=== PATIENT | female | born 1945 | race Hispanic/Latino ===

== ENCOUNTER → 2019-09-25 | Outpatient (CLI) | payer OTHER | END | disposition home or self-care (01) | LOC: RAH 09:22 | PROVIDERS: ATTEND Obstetrics & Gynecology | DX: D07.0 Carcinoma in situ of endometrium (principal); K42.9 Umbilical hernia without obstruction or gangrene | CPT/HCPCS: 74176 ==

== ENCOUNTER 2024-03-04 06:52 | Observation (INO) | payer MEDICARE ==
[2024-02-28 12:50] LABS: BASOPHILS # (AUTO) 0.02 K/uL (0.00-0.20); BASOPHILS % (AUTO) 0.4 % (0.0-5.0); EOSINOPHILS # (AUTO) 0.15 K/uL (0.00-0.70); EOSINOPHILS % (AUTO) 3.2 % (0.0-8.0); HEMATOCRIT 40.6 % (36-48); IMMATURE GRANULOCYTE ABSOLUTE 0.02 K/uL (0-1); LYMPHOCYTES # (AUTO) 0.9 K/uL (1.0-4.8); MEAN CORPUSCULAR HEMOGLOBIN 29.5 pg (27.0-33.0); MEAN CORPUSCULAR VOLUME 89.2 fL (79-99); MONOCYTES # (AUTO) 0.3 K/uL (0.1-1.0); MONOCYTES % (AUTO) 7.2 % (3.0-13.0); NEUTROPHILS # (AUTO) 3.3 K/uL (1.8-7.7); NEUTROPHILS % (AUTO) 70.8 % (40.0-77.0); PLATELET COUNT (AUTO) 191 K/uL (130-400); RED BLOOD CELL COUNT(AUTO) 4.55 MIL/uL (4.00-5.50); RED CELL DISTRIBUTION WIDTH 13.3 % (11.0-15.5); WHITE BLOOD COUNT (AUTO) 4.7 K/uL (4.8-10.8)
[2024-02-28 12:55] LABS: APPEARANCE,URINE CLOUDY (CLEAR); BILIRUBIN,URINE NEGATIVE (NEGATIVE); COLOR,URINE LIGHT-YELLOW (YELLOW); GLUCOSE, URINE (UA) NEGATIVE (NEGATIVE); KETONES,URINE NEGATIVE (NEGATIVE); LEUKOCYTE ESTERASE ,URINE 250 Leu/uL (NEGATIVE); NITRATE,URINE NEGATIVE (NEGATIVE); OCCULT BLOOD,URINE NEGATIVE (NEGATIVE); PH,URINE 6.5 (5.0-8.0); PROTEIN,URINE NEGATIVE (NEGATIVE)
[2024-02-28 12:57] LABS: ADD UA MICROSCOPIC YES
[2024-02-28 12:59] LABS: ALBUMIN 3.8 g/dL (3.5-5.0); CARBON DIOXIDE 32 mmol/L (21-32); CHLORIDE 101 mmol/L (101-111); CREATININE 0.9 mg/dL (0.5-1.0); GLOMERULAR FILTR. RATE CALC 66 mL/min (>90); GLUCOSE,RANDOM 89 mg/dL (70-105); POTASSIUM 3.7 mmol/L (3.5-5.1); SODIUM SERUM 139 mmol/L (136-145); UREA NITROGEN, BLOOD 28 mg/dL (7-18)
[2024-02-28 13:03] LABS: INR <= 0.93 (0.85-1.15); PROTHROMBIN TIME 10.6 SEC (9.6-11.6)
[2024-02-28 13:04] LABS: PARTIAL THROMBOPLASTIN TIME 29.4 SEC (26.3-35.5)
[2024-02-28 13:20] VITALS: BP 138/72; PULSE 59; RESP 17
[2024-02-28 13:31] LABS: BACTERIA,URINE Many /HPF (None Seen)
[2024-02-28 13:32] LABS: RBC,URINE 0-1 /HPF (0-1)
[~2024-03-04] VITALS: Ht 167.6 cm; Wt 84.3 kg
[2024-03-04] VITALS (26 sets, daily range): BP systolic 124–146; BP diastolic 50–82; PULSE 41–68; RESP 14–17; O2SAT 97–100
[~2024-03-04 06:52] MED LIST: AMLO-257 PO; ATOR40TA71 PO; HYDR25TA PO; LOSA100T59 PO; METO-409 PO; TYLENOL ARTHRITIS PO
[2024-03-04] MEDS: CEFAZOLIN SODIUM 2 GM VIAL ONE (06:55)
[2024-03-04] MEDS: LACTATED RINGERS 1000ML 1,000 ML IV ONE (08:05)
[2024-03-04] MEDS ORDERED: LIDOCAINE PF 100MG/5ML (2%) SYRINGE 5ML ONE (08:41)
[2024-03-04] MEDS ORDERED: ROCURONIUM BROMIDE 10MG/1ML 5ML VL ONE (08:42)
[2024-03-04] MEDS ORDERED: PROPOFOL 10 MG/ML 20ML VIAL IV ONE ×2 (08:42→10:42)
[2024-03-04] MEDS ORDERED: SUCCINYLCHOLINE CHLORIDE 20 MG/ML 10 ML VIAL ONE (08:42)
[2024-03-04] MEDS ORDERED: MIDAZOLAM HCL 1 MG/ML 2ML VIAL ONE (08:42)
[2024-03-04] MEDS ORDERED: FENTANYL CITRATE PF 50 MCG/1 ML 2ML VIAL ONE (08:44)
[2024-03-04] MEDS ORDERED: ROPIVACAINE 0.5% 5MG/ML 30ML ONE (08:46)
[2024-03-04] MEDS: CEFAZOLIN SODIUM 1 GM VIAL IVPB ONE (08:55)
[2024-03-04] MEDS ORDERED: GLYCOPYRROLATE 0.2 MG/ML 5 ML VIAL ONE (09:08)
[2024-03-04] MEDS ORDERED: TRANEXAMIC ACID 1000MG/10ML ONE (09:35)
[2024-03-04] MEDS ORDERED: EPHEDRINE SULFATE 50 MG/ML AMPULE ONE (09:35)
[2024-03-04] MEDS ORDERED: NEOSTIGMINE METHYLSULFATE 1MG/ML IV ONE (11:34)
[2024-03-04] MEDS: TRANEXAMIC ACID 1000MG/10ML IV ONE (11:41)
[2024-03-04] MEDS ORDERED: CALCIUM CARB 500MG PO PRN (12:00)
[2024-03-04] MEDS ORDERED: POTASSIUM CHLORIDE 10% ELIXIR 20 MEQ/15 ML UDCUP PO PRN (12:00)
[2024-03-04] MEDS ORDERED: KETOROLAC 15MG/ML VIAL (15MG/ML) IV PRN (12:00)
[2024-03-04] MEDS ORDERED: TRAMADOL HCL 50 MG TABLET PO PRN (12:00)
[2024-03-04] MEDS ORDERED: FERROUS FUMARATE 324 MG TABLET PO PRN (12:00)
[2024-03-04] MEDS: 0.9%NACL 1000ML 1,000 ML IV SCH (12:00)
[2024-03-04] MEDS ORDERED: ONDANSETRON 4MG INJ IVP PRN (12:00)
[2024-03-04] MEDS: KETOROLAC 15MG/ML VIAL (15MG/ML) ONE (12:08)
[2024-03-04] MEDS: KETOROLAC 15MG/ML VIAL (15MG/ML) IV SCH (12:11)
[2024-03-04] MEDS: MEPERIDINE-PF 25 MG/ML SYG ONE (13:01)
[2024-03-04] MEDS: GABAPENTIN 100 MG CAPSULE PO SCH (15:18)
[2024-03-04] MEDS: CEFAZOLIN SODIUM 2 GM VIAL IVPB SCH (15:18)
[2024-03-04] MEDS: BENZOCAINE/MENTH/CETYLPYRD CL 1 EACH LOZENGE MM PRN (19:27)
[2024-03-04] MEDS: DOCUSATE SODIUM 100 MG CAP PO SCH (20:57)
[2024-03-05] VITALS (8 sets, daily range): BP systolic 109–133; BP diastolic 47–61; PULSE 71–77; RESP 16–18; O2SAT 96–99
[2024-03-05 04:03] LABS: HEMATOCRIT 32.7 % (36-48); MEAN CORPUSCULAR HEMOGLOBIN 29.7 pg (27.0-33.0); MEAN CORPUSCULAR HGB CONC 33.6 g/dL (32.0-36.0); MEAN CORPUSCULAR VOLUME 88.4 fL (79-99); RED BLOOD CELL COUNT(AUTO) 3.7 MIL/uL (4.00-5.50); RED CELL DISTRIBUTION WIDTH 13.1 % (11.0-15.5); WHITE BLOOD COUNT (AUTO) 5.6 K/uL (4.8-10.8)
[2024-03-05 04:47] LABS: POTASSIUM 2.9 mmol/L (3.5-5.1)
[2024-03-05] MEDS: POTASSIUM CHLORIDE 20MEQ/100ML 100 ML IV PRN (06:02)
[2024-03-05] MEDS: ASPIRIN 325MG EC TAB PO SCH (08:57)
[2024-03-05] MEDS: POLYETHYLENE GLYCOL 3350 17 GM POWD.PACK PO SCH (08:57)
[2024-03-05] MEDS: KCL 20 MEQ ERTAB PO PRN (20:50)
[2024-03-06 04:33] LABS: POTASSIUM 3.6 mmol/L (3.5-5.1)
[2024-03-06 04:50] VITALS: BP 124/48; PULSE 81; RESP 17
[2024-03-06 08:00] VITALS: BP 124/57; PULSE 87; RESP 20; O2SAT 95
[2024-03-06] MEDS: HYDROCODONE/ACETAMINOPHEN 5/325 MG TAB PO PRN (08:25)
[2024-03-06 12:00] VITALS: BP 113/50; PULSE 85; RESP 18
[2024-03-06 16:00] VITALS: BP 146/66; PULSE 80; RESP 18
[2024-03-06] MEDS ORDERED: HYDR-4060 PO (17:51)
[2024-03-06] MEDS ORDERED: CYCL5TAB PO (17:51)
[2024-03-06] MEDS ORDERED: ASPI-891 PO (17:51)
[2024-03-06] MEDS ORDERED: DOCU-116 PO (17:51)
[2024-03-06 20:00] VITALS: O2SAT 100
[2024-03-06] MEDS: CYCLOBENZAPRINE HCL 10 MG TABLET PO PRN (20:28)
[2024-03-07] MEDS ORDERED: BISACODYL 10 MG SUPP.RECT RC PRN (12:00)
== END 2024-03-06 23:30 | disposition home or self-care (01) ==
LOC: DAH 06:52 → DAHIP 06:53 → 4CH 12:55
PROVIDERS: ADMIT Student in an Organized Health Care Education/Training Program; ATTEND Student in an Organized Health Care Education/Training Program
DX: M16.12 Unilateral primary osteoarthritis, left hip (principal); G89.18 Other acute postprocedural pain; D62 Acute posthemorrhagic anemia; E87.6 Hypokalemia; I10 Essential (primary) hypertension; E66.9 Obesity, unspecified; E78.5 Hyperlipidemia, unspecified; Z79.899 Other long term (current) drug therapy; Z68.30 Body mass index [BMI] 30.0-30.9, adult; Z90.710 Acquired absence of both cervix and uterus; Z88.0 Allergy status to penicillin
CPT/HCPCS: 82040; 80048 ×3; 85025; 85610; 85730; 87088; 84134; 86140; 81001; 36415 ×3; 93005; 87641; 27130; 96365; 96366; 96375; 64447; 73503; 73521; 97161; 97116 ×5; 97530 ×7; 96376; 84132; 85027; G0378 ×55; C1776; J7120; J3010; J0690 ×4; J3490 ×6; J0330; J2001; J2250; J2704 ×2; J2710; J2175; J2795; J1885 ×3; A4649 ×4; G0168; A4930 ×2; A6254; A5120; A4215; A4223; A4213; A4222; A4221; A4663; J7030; J3480

== ENCOUNTER 2024-03-09 17:03 | Emergency (ER) | payer MEDICARE ==
[~2024-03-09] VITALS: Ht 167.6 cm; Wt 72.6 kg
[~2024-03-09 17:03] MED LIST changes: +ASPI-891 PO; +CYCL5TAB PO; +DOCU-116 PO; +HYDR-4060 PO; -TYLENOL ARTHRITIS PO
[2024-03-09] MEDS: MORPHINE 4 MG SYG IVP ONE (19:11)
[2024-03-09] MEDS: 0.9%NACL 1000ML 1,000 ML IV ONE ×2 (19:32→20:18)
[2024-03-09] MEDS: PROPOFOL 10 MG/ML 20ML VIAL IV SCH (20:29)
[2024-03-09] MEDS ORDERED: MELO10CA3 PO (20:49)
[2024-03-09 21:45] VITALS: BP 140/48; PULSE 62; RESP 18; O2SAT 100
[2024-03-10] MEDS ORDERED: DIPH25TA51 PO (20:53)
[2024-03-10] MEDS ORDERED: LACT10SO9 PO (20:56)
[2024-03-10] MEDS ORDERED: POLY17PO4 PO (20:57)
== END 2024-03-10 01:07 ==
LOC: EDH 17:03
DX: T84.021A Dislocation of internal left hip prosthesis, initial encounter (principal); E78.00 Pure hypercholesterolemia, unspecified; Z88.0 Allergy status to penicillin; Z79.899 Other long term (current) drug therapy
CPT/HCPCS: 99285; 27265; 96374; 96361; 73502; 99152; 73501; J7030 ×2; J2704; J2270; J3490

== ENCOUNTER 2024-03-10 18:40 | Inpatient (IN) | payer MEDICARE ==
[~2024-03-10] VITALS: Ht 167.6 cm; Wt 84.1 kg
[~2024-03-10 18:40] MED LIST changes: +MELO10CA3 PO
[2024-03-10] MEDS: HYDROMORPHONE 0.5 MG SYG (0.5MG/0.5ML) ONE (19:18)
[2024-03-10] MEDS: 0.9%NACL 1000ML 1,000 ML IV ONE (19:23)
[2024-03-10] MEDS: HYDROMORPHONE 0.5 MG SYG (0.5MG/0.5ML) IVP ONE (19:24)
[2024-03-10] MEDS: ONDANSETRON 4MG INJ IVP ONE (19:24)
[2024-03-10] MEDS ORDERED: MORPHINE 2 MG SYG IVP ONE (19:30)
[2024-03-10] MEDS: PROPOFOL 10 MG/ML 20ML VIAL IV ONE (19:58)
[2024-03-10] MEDS ORDERED: DIPH25TA51 PO (20:53)
[2024-03-10] MEDS ORDERED: LACT10SO9 PO (20:56)
[2024-03-10] MEDS ORDERED: POLY17PO4 PO (20:57)
[2024-03-10] MEDS ORDERED: KETOROLAC 15MG/ML VIAL (15MG/ML) IV PRN (21:30)
[2024-03-10] MEDS ORDERED: HYDRALAZINE 20MG/ML VIAL IV PRN (21:30)
[2024-03-10] MEDS ORDERED: ONDANSETRON 4MG INJ IV PRN (21:30)
[2024-03-10 22:22] VITALS: BP 148/59; PULSE 63; RESP 18
[2024-03-10 22:30] VITALS: O2SAT 98
[2024-03-11] VITALS (25 sets, daily range): BP systolic 116–165; BP diastolic 52–69; PULSE 58–79; RESP 13–19; O2SAT 97–100
[2024-03-11 04:53] LABS: BASOPHILS # (AUTO) 0.02 K/uL (0.00-0.20); BASOPHILS % (AUTO) 0.3 % (0.0-5.0); EOSINOPHILS # (AUTO) 0.19 K/uL (0.00-0.70); EOSINOPHILS % (AUTO) 3.2 % (0.0-8.0); HEMATOCRIT 30.8 % (36-48); IMMATURE GRANULOCYTE ABSOLUTE 0.06 K/uL (0-1); LYMPHOCYTES # (AUTO) 0.6 K/uL (1.0-4.8); LYMPHOCYTES % (AUTO) 9.8 % (21.0-51.0); MEAN CORPUSCULAR HEMOGLOBIN 29.9 pg (27.0-33.0); MEAN CORPUSCULAR HGB CONC 33.1 g/dL (32.0-36.0); MEAN CORPUSCULAR VOLUME 90.3 fL (79-99); MONOCYTES # (AUTO) 0.5 K/uL (0.1-1.0); MONOCYTES % (AUTO) 8.8 % (3.0-13.0); NEUTROPHILS # (AUTO) 4.5 K/uL (1.8-7.7); NEUTROPHILS % (AUTO) 76.9 % (40.0-77.0); PLATELET COUNT (AUTO) 224 K/uL (130-400); RED BLOOD CELL COUNT(AUTO) 3.41 MIL/uL (4.00-5.50); RED CELL DISTRIBUTION WIDTH 13.4 % (11.0-15.5); WHITE BLOOD COUNT (AUTO) 5.9 K/uL (4.8-10.8)
[2024-03-11 05:00] LABS: INR <= 0.93 (0.85-1.15); PROTHROMBIN TIME 10.6 SEC (9.6-11.6)
[2024-03-11 05:01] LABS: PARTIAL THROMBOPLASTIN TIME 30.2 SEC (26.3-35.5)
[2024-03-11 05:03] LABS: ALBUMIN 2.1 g/dL (3.5-5.0); BILIRUBIN,TOTAL 1.5 mg/dL (0.2-1.0); MAGNESIUM 1.8 mg/dL (1.80-2.40); POTASSIUM 3.2 mmol/L (3.5-5.1); TOTAL PROTEIN, SERUM 5.9 g/dL (6.0-8.3)
[2024-03-11] MEDS ORDERED: POTASSIUM CHLORIDE 10% ELIXIR 20 MEQ/15 ML UDCUP PO PRN ×2 (06:00→16:00)
[2024-03-11] MEDS ORDERED: MAGNESIUM 2GM PREMIX 50ML 50 ML IV PRN (06:00)
[2024-03-11] MEDS ORDERED: KCL 20 MEQ ERTAB PO PRN (06:00)
[2024-03-11] MEDS: POTASSIUM CHLORIDE 20MEQ/100ML 100 ML IV PRN (06:15)
[2024-03-11] MEDS: LACTATED RINGERS 1000ML 1,000 ML IV SCH (06:15)
[2024-03-11] MEDS: CEFAZOLIN SODIUM 2 GM VIAL ONE (10:20)
[2024-03-11] MEDS: ACETAMINOPHEN 1,000 MG/100 ML VIAL IV ONE ×2 (10:22→10:28)
[2024-03-11] MEDS: LACTATED RINGERS 1000ML 1,000 ML IV ONE (10:28)
[2024-03-11] MEDS: FAMOTIDINE 20MG VIAL IV ONE (10:33)
[2024-03-11] MEDS ORDERED: KETAMINE 50MG/ML SYRINGE 50 MG/ML DISP.SYRIN ONE (10:38)
[2024-03-11] MEDS ORDERED: ROPIVACAINE 0.5% 5MG/ML 30ML ONE (10:38)
[2024-03-11] MEDS ORDERED: FENTANYL CITRATE PF 50 MCG/1 ML 2ML VIAL ONE (10:39)
[2024-03-11] MEDS ORDERED: LIDOCAINE PF 100MG/5ML (2%) SYRINGE 5ML ONE (10:39)
[2024-03-11] MEDS ORDERED: PROPOFOL 10 MG/ML 20ML VIAL IV ONE (10:39)
[2024-03-11] MEDS ORDERED: ROCURONIUM BROMIDE 10MG/1ML 5ML VL ONE ×2 (10:39→12:27)
[2024-03-11] MEDS ORDERED: 0.9%NACL 10ML VIAL ONE (10:41)
[2024-03-11] MEDS: TRANEXAMIC ACID 1000MG/10ML ONE (10:52)
[2024-03-11] MEDS ORDERED: DEXAMETHASONE SOD PHOSPHATE 10MG/ML 1ML VIAL ONE (12:23)
[2024-03-11] MEDS ORDERED: ONDANSETRON 4MG INJ ONE (12:23)
[2024-03-11] MEDS ORDERED: EPHEDRINE SULFATE 50 MG/ML AMPULE ONE (12:31)
[2024-03-11] MEDS: CEFAZOLIN SODIUM 2 GM VIAL IVPB PRN (12:45)
[2024-03-11] MEDS ORDERED: NEOSTIGMINE METHYLSULFATE 1MG/ML IV ONE (12:48)
[2024-03-11] MEDS ORDERED: GLYCOPYRROLATE 0.2 MG/ML 5 ML VIAL ONE (12:48)
[2024-03-11] MEDS ORDERED: POLYETHYLENE GLYCOL 3350 17 GM POWD.PACK PO PRN (14:00)
[2024-03-11] MEDS ORDERED: LACTULOSE 20 GM/30 ML UDCUP PO PRN (14:00)
[2024-03-11] MEDS ORDERED: FERROUS FUMARATE 324 MG TABLET PO PRN (16:00)
[2024-03-11] MEDS ORDERED: DiphenhydrAMINE HCL 50 MG/ML VIAL IVP PRN (16:00)
[2024-03-11] MEDS ORDERED: ONDANSETRON 4MG INJ IVP PRN (16:00)
[2024-03-11] MEDS ORDERED: CYCLOBENZAPRINE HCL 10 MG TABLET PO PRN (16:00)
[2024-03-11] MEDS ORDERED: POTASSIUM CHLORIDE 20MEQ/100ML 100 ML IV PRN (16:00)
[2024-03-11] MEDS: 0.9%NACL 1000ML 1,000 ML IV SCH (17:09)
[2024-03-11] MEDS: KETOROLAC 15MG/ML VIAL (15MG/ML) IV SCH (17:10)
[2024-03-11] MEDS: CEFAZOLIN SODIUM 2 GM VIAL IVPB SCH (20:34)
[2024-03-11] MEDS: DOCUSATE SODIUM 100 MG CAP PO SCH (20:34)
[2024-03-11] MEDS: ATORVASTATIN 40 MG TABLET PO SCH (20:34)
[2024-03-11] MEDS: GABAPENTIN 100 MG CAPSULE PO SCH (20:34)
[2024-03-11] MEDS: FAMOTIDINE 20MG TAB PO SCH (20:35)
[2024-03-12] VITALS (10 sets, daily range): BP systolic 105–124; BP diastolic 41–81; PULSE 66–84; RESP 16–19; O2SAT 99–100
[2024-03-12 04:36] LABS: BASOPHILS # (AUTO) 0.01 K/uL (0.00-0.20); BASOPHILS % (AUTO) 0.1 % (0.0-5.0); HEMATOCRIT 24.7 % (36-48); IMMATURE GRANULOCYTE ABSOLUTE 0.07 K/uL (0-1); LYMPHOCYTES # (AUTO) 0.3 K/uL (1.0-4.8); LYMPHOCYTES % (AUTO) 4.9 % (21.0-51.0); MEAN CORPUSCULAR HEMOGLOBIN 29.2 pg (27.0-33.0); MEAN CORPUSCULAR HGB CONC 33.2 g/dL (32.0-36.0); MEAN CORPUSCULAR VOLUME 87.9 fL (79-99); MONOCYTES # (AUTO) 0.7 K/uL (0.1-1.0); NEUTROPHILS # (AUTO) 5.9 K/uL (1.8-7.7); PLATELET COUNT (AUTO) 274 K/uL (130-400); RED BLOOD CELL COUNT(AUTO) 2.81 MIL/uL (4.00-5.50); RED CELL DISTRIBUTION WIDTH 13.7 % (11.0-15.5)
[2024-03-12 05:23] LABS: ALBUMIN 1.9 g/dL (3.5-5.0); BILIRUBIN,TOTAL 0.9 mg/dL (0.2-1.0); CREATININE 1.1 mg/dL (0.5-1.0); TOTAL PROTEIN, SERUM 5.4 g/dL (6.0-8.3)
[2024-03-12] MEDS: ASPIRIN 325MG EC TAB PO SCH (09:13)
[2024-03-12] MEDS: CALCIUM CARB 500MG PO PRN (09:14)
[2024-03-12] MEDS: HYDROCODONE/ACETAMINOPHEN 5/325 MG TAB PO PRN (09:21)
[2024-03-12] MEDS: AMLODIPINE 5 MG TAB PO SCH (09:27)
[2024-03-12] MEDS: HYDROCHLOROTHIAZIDE 25 MG TABLET PO SCH (09:27)
[2024-03-12] MEDS: LOSARTAN 100 MG TABLET PO SCH (09:27)
[2024-03-12] MEDS: METOPROLOL SUCCINATE 50 MG TAB.SR.24H PO SCH (09:28)
[2024-03-12] MEDS: POLYETHYLENE GLYCOL 3350 17 GM POWD.PACK PO SCH (09:33)
[2024-03-12 12:35] LABS: HEMATOCRIT 23.6 % (36-48)
[2024-03-13 04:00] VITALS: BP 118/44; PULSE 71; RESP 16
[2024-03-13 05:20] LABS: HEMATOCRIT 22.1 % (36-48); MEAN CORPUSCULAR HEMOGLOBIN 29.4 pg (27.0-33.0); MEAN CORPUSCULAR HGB CONC 32.6 g/dL (32.0-36.0); MEAN CORPUSCULAR VOLUME 90.2 fL (79-99); RED BLOOD CELL COUNT(AUTO) 2.45 MIL/uL (4.00-5.50); RED CELL DISTRIBUTION WIDTH 13.8 % (11.0-15.5); WHITE BLOOD COUNT (AUTO) 5.3 K/uL (4.8-10.8)
[2024-03-13 06:35] LABS: CREATININE 1.2 mg/dL (0.5-1.0); POTASSIUM 3.1 mmol/L (3.5-5.1)
[2024-03-13] MEDS: KCL 20 MEQ ERTAB PO PRN (06:41)
[2024-03-13 08:00] VITALS: BP 114/45; PULSE 60; RESP 18; O2SAT 99
[2024-03-13 08:14] LABS: RETICULOCYTE % (AUTO) 2.39 % (0.42-2.23)
[2024-03-13 08:44] LABS: % IRON SATURATION 11.1 % (22-44)
[2024-03-13 12:00] VITALS: BP 120/40; PULSE 65; RESP 18
[2024-03-13] MEDS ORDERED: COMPOUND IV MISC 1 EACH IVSOLN MISC PRN (14:00)
[2024-03-13] MEDS ORDERED: COMPOUND IV REFRIGERATED 1 EACH IVSOLN MISC PRN (14:00)
[2024-03-13] MEDS: IRON SUCROSE COMPLEX 300 MG in 0.9% NACL 250ML 250 ML IV ONE (14:18)
[2024-03-13 14:38] LABS: HEMATOCRIT 23.6 % (36-48)
[2024-03-14] MEDS ORDERED: BISACODYL 10 MG SUPP.RECT RC PRN (16:00)
== END 2024-03-13 18:00 | DRG 467 ==
LOC: EDH 18:40 → EDHIP 21:19 → 4BH 22:35
PROVIDERS: ADMIT Internal Medicine; ATTEND Internal Medicine
PROC: 0SSBXZZ Reposition Left Hip Joint, External Approach (ICD-10-PCS; 2024-03-10)
PROC: 0SPB0JZ Removal of Synthetic Substitute from Left Hip Joint, Open Approach (ICD-10-PCS; 2024-03-11)
PROC: 0SRB06A Replacement of Left Hip Joint with Oxidized Zirconium on Polyethylene Synthetic Substitute, Uncemented, Open Approach (ICD-10-PCS; principal; 2024-03-11 11:53)
DX: T84.021A Dislocation of internal left hip prosthesis, initial encounter (principal); D62 Acute posthemorrhagic anemia; I10 Essential (primary) hypertension; E78.00 Pure hypercholesterolemia, unspecified; Y79.2 Prosthetic and other implants, materials and accessory orthopedic devices associated with adverse incidents; D50.9 Iron deficiency anemia, unspecified; Z96.652 Presence of left artificial knee joint; M16.12 Unilateral primary osteoarthritis, left hip; Z82.3 Family history of stroke; Z82.49 Family history of ischemic heart disease and other diseases of the circulatory system; Z88.0 Allergy status to penicillin; Z82.5 Family history of asthma and other chronic lower respiratory diseases; Z83.3 Family history of diabetes mellitus; Z85.42 Personal history of malignant neoplasm of other parts of uterus; Z90.710 Acquired absence of both cervix and uterus
CPT/HCPCS: 36415; 73501; 73502; 73503; 73521; 73562; 80048; 80053; 82607; 82728; 83735; 85014; 85018; 85025; 85027; 85610; 85730; 86850; 86900; 86901; 86923; 96374; 96375; C1713; C1776; G0378; J1100; J1170; J1756; J1885; J2001; J2405; J2704; J2710; J2795; J3010; J3480; J3490; J7030; J7050; J7120; A4216; A4222; A4223; A4649; A6255; G0168; J0690

== ENCOUNTER → 2024-04-18 | Outpatient (CLI) | payer MEDICARE ==
[~2024-04-18] MED LIST changes: +DIPH25TA51 PO; +LACT10SO9 PO; -MELO10CA3 PO; +POLY17PO4 PO
== END | disposition home or self-care (01) ==
LOC: LAB 11:54
PROVIDERS: ATTEND Student in an Organized Health Care Education/Training Program
DX: T14.8XXA Other injury of unspecified body region, initial encounter (principal); X58.XXXA Exposure to other specified factors, initial encounter; Y93.89 Activity, other specified; Y92.89 Other specified places as the place of occurrence of the external cause; Y99.8 Other external cause status
CPT/HCPCS: 87070; 87076; 87077; 87186

== ENCOUNTER → 2024-06-12 | Outpatient (CLI) | payer MEDICARE | END | disposition home or self-care (01) | LOC: LAB 11:18 | PROVIDERS: ATTEND Orthopaedic Surgery | DX: T81.89XD Other complications of procedures, not elsewhere classified, subsequent encounter (principal); Y92.89 Other specified places as the place of occurrence of the external cause | CPT/HCPCS: 87070; 87076; 87205 ==

== ENCOUNTER → 2024-06-18 | Outpatient (CLI) | payer MEDICARE ==
[~2024-06-18] MED LIST changes: +LIDOCAINE HCL 4% LTA SOL 4 ML VIAL TP ONE
== END | disposition home or self-care (01) ==
LOC: WHH 07:57
PROVIDERS: ATTEND Family Medicine
DX: T81.31XA Disruption of external operation (surgical) wound, not elsewhere classified, initial encounter (principal); S71.002A Unspecified open wound, left hip, initial encounter; I10 Essential (primary) hypertension; E78.5 Hyperlipidemia, unspecified; K21.9 Gastro-esophageal reflux disease without esophagitis; Z96.642 Presence of left artificial hip joint; X58.XXXA Exposure to other specified factors, initial encounter; Y93.89 Activity, other specified; Y92.89 Other specified places as the place of occurrence of the external cause; Y99.8 Other external cause status; Y83.8 Other surgical procedures as the cause of abnormal reaction of the patient, or of later complication, without mention of misadventure at the time of the procedure; Y92.238 Other place in hospital as the place of occurrence of the external cause
CPT/HCPCS: G0463; A4450

== ENCOUNTER → 2024-06-25 | Outpatient (CLI) | payer MEDICARE ==
[~2024-06-25] MED LIST changes: -LIDOCAINE HCL 4% LTA SOL 4 ML VIAL TP ONE
== END | disposition home or self-care (01) ==
LOC: WHH 07:49
PROVIDERS: ATTEND Family Medicine
DX: T81.89XD Other complications of procedures, not elsewhere classified, subsequent encounter (principal); S71.002D Unspecified open wound, left hip, subsequent encounter; I10 Essential (primary) hypertension; E78.5 Hyperlipidemia, unspecified; K21.9 Gastro-esophageal reflux disease without esophagitis; Z96.652 Presence of left artificial knee joint; Z90.710 Acquired absence of both cervix and uterus; Z79.899 Other long term (current) drug therapy; X58.XXXD Exposure to other specified factors, subsequent encounter
CPT/HCPCS: G0463